=== PATIENT | male | born 1960 | race Caucasian/White ===

== ENCOUNTER 2019-04-23 17:08 | Emergency (ER) | payer OTHER ==
[2019-04-23] MEDS ORDERED: Sodium Chloride 0.9% 1,000 ML IV ONE (17:19)
[2019-04-23] MEDS ORDERED: Ondansetron 4 MG/2 ML SDV IVPUSH ONE (17:19)
[2019-04-23] MEDS ORDERED: Ketorolac 30 MG/ML SDV IVPUSH ONE (17:19)
--- NOTE | 2019-04-23 17:24 | EDM.PDOC ---
ED HPI GENERAL MEDICAL PROBLEM - General Chief Complaint: Abdominal Pain Stated Complaint: PAT SPOKE TO NURSE Time Seen by Provider: 04/23/19 17:09 Source of Information: Reports: Patient History Limitations: Reports: No Limitations - History of Present Illness INITIAL COMMENTS - FREE TEXT/NARRATIVE: HISTORY AND PHYSICAL: History of present illness: Patient is a 59-year-old male presents to the ED today with concern of left lower quadrant pain 1 day. Patient states he has a history of diverticulitis in the past. Patient states his been several years since he has had an outbreak of the diverticulitis but starting yesterday he began having feelings of it coming back. He rates his discomfort a 6 out of 10 and states that he feels like he needs to have a bowel movement but has not been able to have one today. Patient states he's been able to eat and drink today without difficulty. Patient states he has a history of depression but denies any other health history. Patient denies fever, chills, chest pain, shortness of breath, or cough. Denies headache, neck stiff ness, change in vision, syncope, or near syncope. Denies nausea, vomiting, diarrhea, constipation, or dysuria. Has not noted any blood in urine or stool. Patient has been eating and drinking appropriately. Review of systems: As per history of present illness and below otherwise all systems reviewed and negative. Past medical history: As per history of present illness and as reviewed below otherwise noncontributory. Surgical history: As per history of present illness and as reviewed below otherwise noncontributory. Social history: See social history for further information Family history: As per history of present illness and as reviewed below otherwise noncontributory. Physical exam: General: Patient is alert, oriented, and in no acute distress. Patient laying comfortably on exam table. HEENT: Atraumatic, normocephalic, pupils equal and reactive bilaterally, negative for conjunctival pallor or scleral icterus, mucous membranes moist, TMs normal bilaterally, throat clear, neck supple, nontender, trachea midline. No drooling or trismus noted. No meningeal signs. No hot potato voice noted. Lungs: Clear to auscultation, breath sounds equal bilaterally, chest nontender. Heart: S1S2, regular rate and rhythm without overt murmur Abdomen: Obese, Soft, nondistended. Moderate pain to palpation of the left lower quadrant without guarding Negative for masses or hepatosplenomegaly. Negative for costovertebral tenderness. Pelvis: Stable nontender. Genitourinary: Deferred. Rectal: Deferred. Skin: Intact, warm, dry. No lesions or rashes noted. Extremities: Atraumatic, negative for cords or calf pain. Neurovascular unremarkable. Neuro: Awake, alert, oriented. Cranial nerves II through XII unremarkable. Cerebellum unremarkable. Motor and sensory unremarkable throughout. Exam nonfocal. Notes: Patient declines all diagnostics and therapeutics and requests to leave AMA. Diagnostics: EKG, CBC, CMP, UA, lipase, abdominal pelvic CT (declines all workup) Therapeutics: Saline, Toradol, Zofran (declines all therapeutics) Prescription: None Impression: LLQ abdominal pain H/O diverticulitis Against Medical Advice Plan: 1. Patient left ED against medical adv ice before discharge. Definitive disposition and diagnosis as appropriate pending reevaluation and review of above. left lower abd Pain Score (Numeric/FACES): 3 - Related Data Allergies Allergy/AdvReac Type Severity Reaction Status Date / Time No Known Allergies Allergy Verified 04/23/19 17:19 Home Meds: Home Meds Sertraline [Zoloft] 200 mg PO DAILY 04/23/19 [History] ED ROS GENERAL - Review of Systems Review Of Systems: ROS reveals no pertinent complaints other than HPI. ED EXAM, GENERAL - Physical Exam Exam: See Below (see dictation) Course - Vital Signs Last Recorded V/S: Last Vital Signs Temp 37.2 C 04/23/19 17:20 Pulse 71 04/23/19 17:20 Resp 18 04/23/19 17:20 BP 174/96 H 04/23/19 17:20 Pulse Ox 96 04/23/19 17:20 - Orders/Labs/Meds Orders: Active Orders 24 hr Category Date Time Status EKG Documentation Completion [RC] STAT Care 04/23/19 17:20 Inactive Abdomen Pelvis w Cont [CT] Stat Exams 04/23/19 17:19 Stop Req CBC WITH AUTO DIFF [HEME] Stat Lab 04/23/19 17:19 Stop Req COMPREHENSIVE METABOLIC PN,CMP [CHEM] Stat Lab 04/23/19 17:19 Stop Req LIPASE [CHEM] Stat Lab 04/23/19 17:19 Stop Req UA RFX TAIWO AND CULT IF INDIC [URIN] Stat Lab 04/23/19 17:19 Stop Req Medication Orders Sodium Chloride (Normal Saline) 1,000 mls @ 999 mls/hr IV BOLUS ONE Stop: 04/23/19 18:19 Meds: Medications Generic Name Dose Route Start Last Admin Trade Name Freq PRN Reason Stop Dose Admin Sodium Chloride 1,000 mls @ 999 mls/hr 04/23/19 17:19 Normal Saline IV 04/23/19 18:19 BOLUS ONE Discontinued Medications Generic Name Dose Route Start Last Admin Trade Name Freq PRN Reason Stop Dose Admin Ketorolac Tromethamine 30 mg 04/23/19 17:19 Toradol IVPUSH 04/23/19 17:20 ONETIME ONE Ondansetron HCl 4 mg 04/23/19 17:19 Zofran IVPUSH 04/23/19 17:20 ONETIME ONE Departure - Departure Time of Disposition: 17:38 Disposition: Against Medical Advice 07 Clinical Impression: Left lower quadrant abdominal pain, History of diverticulitis, Left against medical advice - Discharge Information Additional Instructions: Patient left AMA before discharge given - My Orders Last 24 Hours: My Active Orders 04/23/19 17:19 Abdomen Pelvis w Cont [CT] Stat CBC WITH AUTO DIFF [HEME] Stat COMPREHENSIVE METABOLIC PN,CMP [CHEM] Stat LIPASE [CHEM] Stat UA RFX TAIWO AND CULT IF INDIC [URIN] Stat 04/23/19 17:20 EKG Documentation Completion [RC] STAT - Assessment/Plan Last 24 Hours: My Active Orders 04/23/19 17:19 Abdomen Pelvis w Cont [CT] Stat CBC WITH AUTO DIFF [HEME] Stat COMPREHENSIVE METABOLIC PN,CMP [CHEM] Stat LIPASE [CHEM] Stat UA RFX TAIWO AND CULT IF INDIC [URIN] Stat 04/23/19 17:20 EKG Documentation Completion [RC] STAT
== END 2019-04-23 17:42 | disposition left against medical advice (07) ==
LOC: MW.ED 17:08
DX: R10.32 Left lower quadrant pain (principal); Z87.19 Personal history of other diseases of the digestive system; Z53.20 Procedure and treatment not carried out because of patient's decision for unspecified reasons; Z79.899 Other long term (current) drug therapy
CPT/HCPCS: 99282; 99283